=== PATIENT | female | born 1930 | race Caucasian/White ===

== ENCOUNTER 2016-11-20 13:36 | Outpatient (CLI) | payer OTHER, MEDICAID ==
[~2016-11-20 13:36] MED LIST: ALBU8.5H8 INH; ASPI-1063 PO; BUDE6HFA INH; CLAR250T PO; COR6.25 PO; FURO80TA3 PO; LISI-209 PO; POTA-118 PO; TRAM50TA92 PO
== END 2016-11-20 18:29 | disposition home or self-care (01) ==
LOC: SRD 13:36
DX: R06.02 Shortness of breath (principal); M81.0 Age-related osteoporosis without current pathological fracture; M47.899 Other spondylosis, site unspecified
CPT/HCPCS: 71020-TC

== ENCOUNTER 2018-04-11 12:46 | Emergency (ER) | payer OTHER ==
[~2018-04-11] VITALS: Ht 165.1 cm; Wt 74.8 kg
[~2018-04-11 12:46] MED LIST changes: -ASPI-1063 PO; +ASPI-1153 PO; -POTA-118 PO; +POTA10TA15 PO
[2018-04-11 12:55] VITALS: BP_SYST 183
[2018-04-11] MEDS ORDERED: KETOROLAC TROMETHAMINE 60 MG/2 ML VIAL IM ONE (13:15)
[2018-04-11 14:29] VITALS: BP_SYST 175
== END 2018-04-11 14:28 | disposition home or self-care (01) ==
LOC: SED 12:46
DX: M79.604 Pain in right leg (principal); J44.9 Chronic obstructive pulmonary disease, unspecified; I10 Essential (primary) hypertension; Z88.0 Allergy status to penicillin; Z79.82 Long term (current) use of aspirin; Z79.899 Other long term (current) drug therapy
CPT/HCPCS: 93971; 96372; 99284; J1885

== ENCOUNTER 2020-02-21 12:40 | Inpatient (IN) | payer OTHER, SELFPAY ==
[~2020-02-21] VITALS: Ht 152.4 cm; Wt 59.0 kg
[~2020-02-21 12:40] MED LIST changes: -CLAR250T PO; +CLAR250T12 PO
[2020-02-21] MEDS ORDERED: LEVOFLOXACIN 500 MG/D5W 100 ML IV ONE (13:00)
[2020-02-21] MEDS ORDERED: BACITRACIN 1 GM OINT TP ONE ×3 (13:13→18:18)
[2020-02-21 13:53] LABS: BASOPHILS % (AUTO) 0.4 % (0.0-2.0); EOSINOPHILS # (AUTO) 0.1 K/uL (0.0-0.4); EOSINOPHILS % (AUTO) 1.2 % (0.0-4.0); HEMATOCRIT 36.2 % (36-48); HEMOGLOBIN 11.4 g/dL (12.0-16.0); LYMPHOCYTES # (AUTO) 0.8 K/uL (1.0-5.5); LYMPHOCYTES % (AUTO) 13.3 % (20.5-51.5); MEAN CORPUSCULAR HEMOGLOBIN 29 pg (27-31); MEAN CORPUSCULAR HGB CONC 32 % (32-36); MEAN CORPUSCULAR VOLUME 92 fL (79.0-98.0); MONOCYTES # (AUTO) 0.4 K/uL (0.0-1.0); NEUTROPHILS # (AUTO) 4.9 K/uL (1.8-7.7); NEUTROPHILS % (AUTO) 78.1 % (40.0-70.0); PLATELET COUNT (AUTO) 158 K/uL (130-430); RED BLOOD CELL COUNT(AUTO) 3.95 MIL/uL (4.2-6.2); RED CELL DISTRIBUTION WIDTH 16.6 % (9.0-15.0); WHITE BLOOD COUNT (AUTO) 6.3 K/uL (4.8-10.8)
[2020-02-21 14:00] LABS: ANION GAP 8 (5-15); CALCIUM 9.2 mg/dL (8.4-11.0); CHLORIDE 104 mmol/L (98-107); CREATININE 2.98 mg/dL (0.55-1.30); GLUCOSE 104 mg/dL (70-99); POTASSIUM 4.4 mmol/L (3.5-5.1); SODIUM SERUM 139 mmol/L (136-145); UREA NITROGEN, BLOOD 54 mg/dL (8-21)
[2020-02-21 14:04] LABS: ALANINE AMINOTRANSFERASE 16 U/L (12-78); ASPARTATE AMINOTRANSFERASE 15 U/L (10-37); TOTAL BILIRUBIN 0.4 mg/dL (0.0-1.0)
[2020-02-21 14:05] LABS: ALBUMIN 3.3 g/dL (3.4-4.8)
[2020-02-21 14:09] LABS: BILIRUBIN,URINE NEGATIVE (NEGATIVE); BLOOD, URINE NEGATIVE (NEGATIVE); CLARITY/URINE CLEAR (CLEAR); COLOR,URINE YELLOW (YELLOW); GLUCOSE,URINE NEGATIVE (NEGATIVE); KETONES,URINE NEGATIVE (NEGATIVE); LEUKOCYTE ESTERASE ,URINE TRACE (NEGATIVE); NITRITE, URINE NEGATIVE (NEGATIVE); PROTEIN URINE TRACE (NEGATIVE); UROBILINOGEN,URINE 0.2 (0.2-1.0)
[2020-02-21 14:12] VITALS: BP_SYST 106
[2020-02-21 14:19] LABS: BACTERIA,URINE FEW /HPF (None Seen); MUCUS,URINE None Seen /LPF (None Seen); RBC,URINE NONE SEEN /HPF (0-3)
[2020-02-21] MEDS ORDERED: TRAM50TA2 PO (15:22)
[2020-02-21] MEDS ORDERED: BACL10TA PO (15:22)
[2020-02-21] MEDS ORDERED: FURO-149 PO (15:22)
[2020-02-21] MEDS ORDERED: LISI10TA5 PO (15:22)
[2020-02-21] MEDS ORDERED: FURO80TA3 PO (15:22)
[2020-02-21] MEDS ORDERED: POTA20TA83 PO (15:22)
[2020-02-21] MEDS ORDERED: SIMV10TA2 PO (15:22)
[2020-02-21] MEDS ORDERED: GABA-531 PO (15:22)
[2020-02-21] MEDS ORDERED: CARV6.2554 PO (15:22)
[2020-02-21] MEDS ORDERED: BUDE6HFA INH (15:22)
[2020-02-21] MEDS ORDERED: LORazepam 2 MG/ML VIAL IVP ONE (16:45)
[2020-02-21] MEDS ORDERED: LORazepam 2 MG/ML VIAL IVP PRN (22:30)
[2020-02-21] MEDS ORDERED: HYDROcodone/ACETAMIN 10-325 MG TAB PO PRN (22:30)
[2020-02-21] MEDS ORDERED: NALOXONE HCL 0.4 MG/ML AMP (NARCAN) IVP PRN (22:30)
[2020-02-21] MEDS ORDERED: ACETAMINOPHEN 325 MG TABLET PO PRN (22:30)
[2020-02-21] MEDS ORDERED: ONDANSETRON HCL 4 MG/2 ML VIAL IVP PRN (22:30)
[2020-02-21] MEDS ORDERED: traMADol HCL HCL 50 MG TABLET (ULTRAM) PO PRN (22:30)
[2020-02-21 23:12] VITALS: BP_SYST 134
[2020-02-22] MEDS: ALBUTEROL SULFATE 0.083% 2.5 MG/3 ML VIAL.NEB INH SCH ×5 (01:58→23:55)
[2020-02-22] MEDS: NORMAL SALINE 5 ML DISP.SYRIN IVF SCH ×4 (05:17→23:02)
[2020-02-22] MEDS ORDERED: NORMAL SALINE 5 ML DISP.SYRIN IVF SCH (06:00)
[2020-02-22 06:14] LABS: BILIRUBIN,URINE NEGATIVE (NEGATIVE); BLOOD, URINE 2+ (NEGATIVE); COLOR,URINE YELLOW (YELLOW); GLUCOSE,URINE NEGATIVE (NEGATIVE); KETONES,URINE NEGATIVE (NEGATIVE); LEUKOCYTE ESTERASE ,URINE NEGATIVE (NEGATIVE); NITRITE, URINE NEGATIVE (NEGATIVE); PH,URINE 5.5 (5.0-8.0); PROTEIN URINE NEGATIVE (NEGATIVE); UROBILINOGEN,URINE 0.2 (0.2-1.0)
[2020-02-22 06:23] LABS: CLARITY/URINE SLIGHTLY CLOUDY (CLEAR)
[2020-02-22] MEDS: BUDESONIDE 0.5 MG/2 ML AMPUL.NEB INH SCH ×2 (06:32→19:17)
[2020-02-22 06:39] LABS: BASOPHILS % (AUTO) 0.5 % (0.0-2.0); EOSINOPHILS # (AUTO) 0.1 K/uL (0.0-0.4); HEMATOCRIT 35.1 % (36-48); HEMOGLOBIN 11.3 g/dL (12.0-16.0); LYMPHOCYTES # (AUTO) 1.1 K/uL (1.0-5.5); LYMPHOCYTES % (AUTO) 15.4 % (20.5-51.5); MEAN CORPUSCULAR HEMOGLOBIN 30 pg (27-31); MEAN CORPUSCULAR HGB CONC 32 % (32-36); MEAN CORPUSCULAR VOLUME 92 fL (79.0-98.0); MONOCYTES # (AUTO) 0.6 K/uL (0.0-1.0); MONOCYTES % (AUTO) 8.2 % (1.7-9.3); NEUTROPHILS # (AUTO) 5.4 K/uL (1.8-7.7); NEUTROPHILS % (AUTO) 74.9 % (40.0-70.0); PLATELET COUNT (AUTO) 142 K/uL (130-430); RED BLOOD CELL COUNT(AUTO) 3.82 MIL/uL (4.2-6.2); RED CELL DISTRIBUTION WIDTH 16.3 % (9.0-15.0); WHITE BLOOD COUNT (AUTO) 7.2 K/uL (4.8-10.8)
[2020-02-22 07:23] LABS: ALANINE AMINOTRANSFERASE 15 U/L (12-78); ALBUMIN 2.9 g/dL (3.4-4.8); ANION GAP 7 (5-15); ASPARTATE AMINOTRANSFERASE 15 U/L (10-37); CALCIUM 8.8 mg/dL (8.4-11.0); CHLORIDE 107 mmol/L (98-107); CREATININE 1.92 mg/dL (0.55-1.30); GLUCOSE 85 mg/dL (70-99); PHOSPHORUS 3.8 mg/dL (2.7-4.5); POTASSIUM 4.1 mmol/L (3.5-5.1); SODIUM SERUM 141 mmol/L (136-145); TOTAL BILIRUBIN 0.4 mg/dL (0.0-1.0); UREA NITROGEN, BLOOD 46 mg/dL (8-21)
[2020-02-22 08:00] VITALS: BP_SYST 107
[2020-02-22] MEDS: ASPIRIN 81 MG TABLET(ECOTRIN) PO SCH (08:53)
[2020-02-22] MEDS: BACLOFEN 10 MG TABLET PO SCH ×2 (08:54→23:00)
[2020-02-22] MEDS: GABAPENTIN 300 MG CAPSULE PO SCH (08:54)
[2020-02-22] MEDS: POTASSIUM CHLORIDE 10 MEQ TAB.PRT.SR PO SCH (08:54)
[2020-02-22] MEDS ORDERED: LISINOPRIL 10 MG TABLET (PRINIVIL) PO SCH (09:00)
[2020-02-22] MEDS ORDERED: FUROSEMIDE 20 MG TABLET PO SCH (09:00)
[2020-02-22] MEDS ORDERED: CARVEDILOL 6.25 MG TABLET (COREG) PO SCH (09:00)
[2020-02-22] MEDS ORDERED: BUDESONIDE/FORMOTEROL 160-4.5 mCg, 6 GM INHALER INH SCH (09:00)
[2020-02-22 09:42] LABS: BACTERIA,URINE FEW /HPF (None Seen); MUCUS,URINE 1+ /LPF (None Seen); WBC,URINE 0-3 /HPF (0-3)
[2020-02-22 12:00] VITALS: BP_SYST 109
[2020-02-22] MEDS: LEVOFLOXACIN 250 MG/D5W 50 ML IV SCH (12:52)
[2020-02-22] MEDS ORDERED: ALBUTEROL SULFATE 0.083% 2.5 MG/3 ML VIAL.NEB INH PRN (13:00)
[2020-02-22] MEDS: NACL 0.9% 1,000 ML IV SCH (13:30)
[2020-02-22] MEDS ORDERED: NACL 0.9% 1,000 ML IV SCH (13:32)
[2020-02-22 16:00] VITALS: BP_SYST 115
[2020-02-22 19:23] VITALS: BP_SYST 122
[2020-02-22 20:00] VITALS: BP_SYST 122
[2020-02-22] MEDS: CARVEDILOL 6.25 MG TABLET (COREG) PO SCH (23:01)
[2020-02-22] MEDS: SIMVASTATIN 10 MG TABLET PO SCH (23:02)
[2020-02-23] VITALS: BP_SYST 113
[2020-02-23] MEDS: NACL 0.9% 1,000 ML IV SCH ×2 (05:16→21:57)
[2020-02-23 06:30] LABS: BASOPHILS % (AUTO) 0.4 % (0.0-2.0); EOSINOPHILS # (AUTO) 0.1 K/uL (0.0-0.4); EOSINOPHILS % (AUTO) 1.5 % (0.0-4.0); HEMATOCRIT 32.1 % (36-48); HEMOGLOBIN 10.4 g/dL (12.0-16.0); LYMPHOCYTES # (AUTO) 0.9 K/uL (1.0-5.5); LYMPHOCYTES % (AUTO) 15.9 % (20.5-51.5); MEAN CORPUSCULAR HEMOGLOBIN 30 pg (27-31); MEAN CORPUSCULAR HGB CONC 32 % (32-36); MEAN CORPUSCULAR VOLUME 92 fL (79.0-98.0); MONOCYTES # (AUTO) 0.5 K/uL (0.0-1.0); MONOCYTES % (AUTO) 8.4 % (1.7-9.3); NEUTROPHILS # (AUTO) 4.4 K/uL (1.8-7.7); NEUTROPHILS % (AUTO) 73.8 % (40.0-70.0); PLATELET COUNT (AUTO) 122 K/uL (130-430); RED BLOOD CELL COUNT(AUTO) 3.48 MIL/uL (4.2-6.2); RED CELL DISTRIBUTION WIDTH 16.2 % (9.0-15.0)
[2020-02-23 06:48] LABS: ALANINE AMINOTRANSFERASE 17 U/L (12-78); ALBUMIN 2.6 g/dL (3.4-4.8); ANION GAP 4 (5-15); ASPARTATE AMINOTRANSFERASE 10 U/L (10-37); CALCIUM 8.5 mg/dL (8.4-11.0); CHLORIDE 105 mmol/L (98-107); CHOLESTEROL 155 mg/dL (<200); CREATININE 1.26 mg/dL (0.55-1.30); GLUCOSE 99 mg/dL (70-99); HDL CHOLESTEROL 49 mg/dL (>55); LDL CHOLESTEROL 96 mg/dL (<100); POTASSIUM 4.3 mmol/L (3.5-5.1); SODIUM SERUM 137 mmol/L (136-145); TOTAL BILIRUBIN 0.4 mg/dL (0.0-1.0); TRIGLYCERIDES 76 mg/dL (30-150); UREA NITROGEN, BLOOD 26 mg/dL (8-21)
[2020-02-23] MEDS: ALBUTEROL SULFATE 0.083% 2.5 MG/3 ML VIAL.NEB INH SCH ×3 (07:22→19:32)
[2020-02-23] MEDS: BUDESONIDE 0.5 MG/2 ML AMPUL.NEB INH SCH ×2 (07:22→19:32)
[2020-02-23] MEDS: LEVOFLOXACIN 250 MG/D5W 50 ML IV SCH (09:44)
[2020-02-23] MEDS: ASPIRIN 81 MG TABLET(ECOTRIN) PO SCH (09:44)
[2020-02-23] MEDS: GABAPENTIN 300 MG CAPSULE PO SCH (09:44)
[2020-02-23] MEDS: POTASSIUM CHLORIDE 10 MEQ TAB.PRT.SR PO SCH (09:44)
[2020-02-23] MEDS: BACLOFEN 10 MG TABLET PO SCH ×2 (09:44→21:54)
[2020-02-23] MEDS: CARVEDILOL 6.25 MG TABLET (COREG) PO SCH ×2 (09:46→21:56)
[2020-02-23 12:00] VITALS: BP_SYST 157
[2020-02-23] MEDS: NORMAL SALINE 5 ML DISP.SYRIN IVF SCH ×2 (14:00→21:57)
[2020-02-23 16:00] VITALS: BP_SYST 153
[2020-02-23 20:00] VITALS: BP_SYST 127
[2020-02-23] MEDS: SIMVASTATIN 10 MG TABLET PO SCH (21:55)
[2020-02-24] MEDS: ALBUTEROL SULFATE 0.083% 2.5 MG/3 ML VIAL.NEB INH SCH ×4 (00:09→20:18)
[2020-02-24 00:58] VITALS: BP_SYST 103
[2020-02-24 06:25] LABS: BASOPHILS % (AUTO) 0.5 % (0.0-2.0); EOSINOPHILS # (AUTO) 0.1 K/uL (0.0-0.4); EOSINOPHILS % (AUTO) 1.4 % (0.0-4.0); HEMATOCRIT 32.4 % (36-48); HEMOGLOBIN 10.5 g/dL (12.0-16.0); LYMPHOCYTES % (AUTO) 16.6 % (20.5-51.5); MEAN CORPUSCULAR HEMOGLOBIN 30 pg (27-31); MEAN CORPUSCULAR HGB CONC 33 % (32-36); MEAN CORPUSCULAR VOLUME 92 fL (79.0-98.0); MONOCYTES # (AUTO) 0.5 K/uL (0.0-1.0); MONOCYTES % (AUTO) 8.6 % (1.7-9.3); NEUTROPHILS # (AUTO) 4.4 K/uL (1.8-7.7); NEUTROPHILS % (AUTO) 72.9 % (40.0-70.0); PLATELET COUNT (AUTO) 123 K/uL (130-430); RED CELL DISTRIBUTION WIDTH 16.6 % (9.0-15.0); WHITE BLOOD COUNT (AUTO) 6.1 K/uL (4.8-10.8)
[2020-02-24 06:41] LABS: ALANINE AMINOTRANSFERASE 12 U/L (12-78); ALBUMIN 2.5 g/dL (3.4-4.8); ANION GAP 4 (5-15); ASPARTATE AMINOTRANSFERASE 14 U/L (10-37); CALCIUM 8.6 mg/dL (8.4-11.0); CHLORIDE 109 mmol/L (98-107); CREATININE 1.04 mg/dL (0.55-1.30); GLUCOSE 94 mg/dL (70-99); POTASSIUM 4.3 mmol/L (3.5-5.1); SODIUM SERUM 143 mmol/L (136-145); TOTAL BILIRUBIN 0.3 mg/dL (0.0-1.0); UREA NITROGEN, BLOOD 15 mg/dL (8-21)
[2020-02-24] MEDS: NORMAL SALINE 5 ML DISP.SYRIN IVF SCH ×3 (06:41→22:00)
[2020-02-24] MEDS: BUDESONIDE 0.5 MG/2 ML AMPUL.NEB INH SCH ×2 (07:15→20:18)
[2020-02-24 08:36] VITALS: BP_SYST 135
[2020-02-24] MEDS: BACLOFEN 10 MG TABLET PO SCH ×2 (08:58→22:29)
[2020-02-24] MEDS: CARVEDILOL 6.25 MG TABLET (COREG) PO SCH ×2 (09:00→22:31)
[2020-02-24] MEDS: POTASSIUM CHLORIDE 10 MEQ TAB.PRT.SR PO SCH (09:01)
[2020-02-24] MEDS: ASPIRIN 81 MG TABLET(ECOTRIN) PO SCH (09:01)
[2020-02-24] MEDS: GABAPENTIN 300 MG CAPSULE PO SCH (09:01)
[2020-02-24] MEDS: LEVOFLOXACIN 250 MG TABLET PO SCH (09:02)
[2020-02-24 11:31] VITALS: BP_SYST 125
[2020-02-24 15:29] VITALS: BP_SYST 131
[2020-02-24] MEDS: NACL 0.9% 1,000 ML IV SCH (16:01)
[2020-02-24 20:00] VITALS: BP_SYST 122
[2020-02-24] MEDS: SIMVASTATIN 10 MG TABLET PO SCH (22:29)
[2020-02-25 01:02] VITALS: BP_SYST 124
[2020-02-25] MEDS: ALBUTEROL SULFATE 0.083% 2.5 MG/3 ML VIAL.NEB INH SCH ×4 (01:36→19:00)
[2020-02-25] MEDS: NACL 0.9% 1,000 ML IV SCH (01:58)
[2020-02-25] MEDS: NORMAL SALINE 5 ML DISP.SYRIN IVF SCH ×3 (05:47→20:56)
[2020-02-25 07:22] VITALS: BP_SYST 142
[2020-02-25] MEDS: BUDESONIDE 0.5 MG/2 ML AMPUL.NEB INH SCH ×2 (07:25→19:10)
[2020-02-25 08:00] VITALS: BP_SYST 142
[2020-02-25] MEDS: ASPIRIN 81 MG TABLET(ECOTRIN) PO SCH (08:38)
[2020-02-25] MEDS: GABAPENTIN 300 MG CAPSULE PO SCH (08:39)
[2020-02-25] MEDS: BACLOFEN 10 MG TABLET PO SCH ×2 (08:39→20:53)
[2020-02-25] MEDS: POTASSIUM CHLORIDE 10 MEQ TAB.PRT.SR PO SCH (08:39)
[2020-02-25] MEDS: CARVEDILOL 6.25 MG TABLET (COREG) PO SCH ×2 (08:41→20:53)
[2020-02-25] MEDS: LEVOFLOXACIN 250 MG TABLET PO SCH (09:53)
[2020-02-25 12:00] VITALS: BP_SYST 148
[2020-02-25 16:00] VITALS: BP_SYST 160
[2020-02-25] MEDS: SIMVASTATIN 10 MG TABLET PO SCH (20:53)
[2020-02-25 21:00] VITALS: BP_SYST 131
[2020-02-26 01:55] VITALS: BP_SYST 140
[2020-02-26] MEDS: ALBUTEROL SULFATE 0.083% 2.5 MG/3 ML VIAL.NEB INH SCH ×4 (02:00→19:54)
[2020-02-26] MEDS: NACL 0.9% 1,000 ML IV SCH (05:06)
[2020-02-26] MEDS: NORMAL SALINE 5 ML DISP.SYRIN IVF SCH ×3 (05:06→21:05)
[2020-02-26] MEDS: BUDESONIDE 0.5 MG/2 ML AMPUL.NEB INH SCH ×2 (07:18→19:54)
[2020-02-26] MEDS: POTASSIUM CHLORIDE 10 MEQ TAB.PRT.SR PO SCH (09:36)
[2020-02-26] MEDS: BACLOFEN 10 MG TABLET PO SCH ×2 (09:36→21:04)
[2020-02-26] MEDS: ASPIRIN 81 MG TABLET(ECOTRIN) PO SCH (09:37)
[2020-02-26] MEDS: LEVOFLOXACIN 250 MG TABLET PO SCH (09:37)
[2020-02-26] MEDS: GABAPENTIN 300 MG CAPSULE PO SCH (09:38)
[2020-02-26] MEDS: CARVEDILOL 6.25 MG TABLET (COREG) PO SCH ×2 (09:38→21:03)
[2020-02-26 11:28] VITALS: BP_SYST 145
[2020-02-26 15:35] VITALS: BP_SYST 146
[2020-02-26] MEDS: SIMVASTATIN 10 MG TABLET PO SCH (21:04)
[2020-02-27] MEDS: NACL 0.9% 1,000 ML IV SCH (00:17)
[2020-02-27 00:18] VITALS: BP_SYST 107
[2020-02-27] MEDS: ALBUTEROL SULFATE 0.083% 2.5 MG/3 ML VIAL.NEB INH SCH ×3 (00:23→13:33)
[2020-02-27] MEDS: BUDESONIDE 0.5 MG/2 ML AMPUL.NEB INH SCH (07:22)
[2020-02-27 08:00] VITALS: BP_SYST 110
[2020-02-27] MEDS: POTASSIUM CHLORIDE 10 MEQ TAB.PRT.SR PO SCH (08:49)
[2020-02-27] MEDS: GABAPENTIN 300 MG CAPSULE PO SCH (08:49)
[2020-02-27] MEDS: BACLOFEN 10 MG TABLET PO SCH (08:50)
[2020-02-27] MEDS: CARVEDILOL 6.25 MG TABLET (COREG) PO SCH (08:50)
[2020-02-27] MEDS: ASPIRIN 81 MG TABLET(ECOTRIN) PO SCH (08:50)
[2020-02-27] MEDS: LEVOFLOXACIN 250 MG TABLET PO SCH (11:20)
[2020-02-27 11:29] VITALS: BP_SYST 144
[2020-02-27 12:40] VITALS: BP_SYST 110
== END 2020-02-27 15:25 | DRG 682 ==
LOC: SED 12:40 → SMU 15:23 → STU 02-22 12:50 → SMU 02-25 12:52
PROVIDERS: ADMIT Internal Medicine Hospice and Palliative Medicine; ATTEND Internal Medicine Hospice and Palliative Medicine
PROC: 4A10X4Z Monitoring of Central Nervous Electrical Activity, External Approach (ICD-10-PCS; principal; 2020-02-24)
DX: N17.9 Acute kidney failure, unspecified (principal); G93.41 Metabolic encephalopathy; G40.89 Other seizures; N13.6 Pyonephrosis; E86.0 Dehydration; J44.9 Chronic obstructive pulmonary disease, unspecified; I25.10 Atherosclerotic heart disease of native coronary artery without angina pectoris; M19.90 Unspecified osteoarthritis, unspecified site; R00.1 Bradycardia, unspecified; G62.9 Polyneuropathy, unspecified; I12.9 Hypertensive chronic kidney disease with stage 1 through stage 4 chronic kidney disease, or unspecified chronic kidney disease; N18.9 Chronic kidney disease, unspecified; Z20.828 Contact with and (suspected) exposure to other viral communicable diseases; N31.9 Neuromuscular dysfunction of bladder, unspecified; Z88.0 Allergy status to penicillin; Z79.82 Long term (current) use of aspirin; Z79.84 Long term (current) use of oral hypoglycemic drugs; Z79.899 Other long term (current) drug therapy; Z99.81 Dependence on supplemental oxygen; Z87.891 Personal history of nicotine dependence
CPT/HCPCS: 36415; 70450-TC; 71045; 76770; 80053; 80061; 81000-TC; 83605; 83735-TC; 83880; 84100-TC; 84484; 85025; 87040-TC; 87086; 93005; 93306; 94640; 94760; 95816; 96365; 97110-GP; 97112-GP; 97116-GP; 97530-GP; 99285; G0378; J1956; J7030; J7613; J7626; U0003-CS